=== PATIENT | female | born 1950 | race Caucasian/White ===

== ENCOUNTER → 2024-04-08 14:36 | Outpatient (REF) | payer MEDICARE, SELFPAY | LOC: RAD 14:36 | PROVIDERS: ATTENDING PHYSICIAN Internal Medicine Cardiovascular Disease; FAMILY PHYSICIAN Family Medicine | DX: R06.09 Other forms of dyspnea (principal) | CPT/HCPCS: 71046 ==

== ENCOUNTER → 2024-07-22 13:30 | Outpatient (REF) | payer MEDICARE, SELFPAY | LOC: WDC 13:30 | PROVIDERS: ATTENDING PHYSICIAN Obstetrics & Gynecology; FAMILY PHYSICIAN Family Medicine | DX: M85.80 Other specified disorders of bone density and structure, unspecified site (principal); Z12.31 Encounter for screening mammogram for malignant neoplasm of breast; M81.0 Age-related osteoporosis without current pathological fracture | CPT/HCPCS: 77063; 77067; 77080 ==

== ENCOUNTER 2025-01-03 23:55 | Emergency (ER) | payer MEDICARE, SELFPAY ==
[2025-01-03 23:57] VITALS: BP 100/62
[2025-01-04 00:09] VITALS: BMI 23.3
--- NOTE | 2025-01-04 00:15 | EDRN ---
Pt says she is here because around 2244 pt was sitting and noticed she went into afib 'I always feel it when it happens. It is uncomfortable.' Pt checked her apple watch and it confirmed she was in afib. No cp, sob, abd pain, n/v,
fever/chills/cough, dizziness, weakness. Pt feels palpitations and says the left side of her chest feels uncomfortable. Within past year pt has taken metoprolol for episodes of afib. Last time pt was hospitalized with afib was 2 years ago. Pt
took metoprolol 25mg around 2300 along with multaq 400mg that pt used to take.
[2025-01-04 00:22] VITALS: BP 110/72
--- NOTE | 2025-01-04 00:38 | ED.GENMED ---
History of Present Illness
General
Chief Complaint: Heart Rate Problem
Source: patient
Exam Limitations: none
Time Seen by Provider: 01/04/25 00:18
History of Present Illness
History of Present Illness:
74-year-old female with history of paroxysmal atrial fibrillation on Eliquis presents with the onset of atrial fibrillation around 11 PM this evening. She denies chest pain or shortness of breath. She took an additional metoprolol without any
success. She follows with a industrial maintenance instructor through [facility]. No leg swelling or calf pain. In the past she has had success with rate control medications.
Past History
Past History
ED Past Medical History: Arrthythmia, HTN and Hypercholesterolemia
ED Past Surgical History: None
Social History
Tobacco: Non-smoker
Alcohol: None
Drug: None
Personal:
Phy Exam
Physical Exam
Physical Exam:
General: Well-appearing female no acute respiratory distress
HEENT: Normocephalic atraumatic
Heart: Tachycardic and irregular
Lungs: Clear no wheeze
Extremities: No cyanosis or edema
Course
Orders/Labs/Results
Orders:
Orders
01/03/25 23:59
ECG [Electrocardiogram (*1)] Urgent
Reason for Study: Atrial Fibrillation
EKG- Treatment ONCE
01/04/25 00:30
0.9% Sodium Chloride 1000 ml [Nss] 1,000 ml IV BOLUS
Diltiazem 125 mg/125 ml Nss [Cardizem] 125 mg in 125 ml IV PER PROTOCOL
Initial dose in mg/hr, then titrate:: 5
Titrate to keep:: Heart rate 80-100 bpm
Titrate by mg/hr:: 5 mg/hr
Frequency of titrations (minutes):: 15
Maximum dose in mg/hr:: 15
Diltiazem HCl [Cardizem] 10 mg IV NOW STA
Vital Signs
Initial and Last Documented VS:
Initial Vital Signs
Temp Pulse Resp BP Pulse Ox
97.8 F 80 20 100/62 100
01/03/25 23:57 01/03/25 23:57 01/03/25 23:57 01/03/25 23:57 01/03/25 23:57
Last Documented Vital Signs
Temp Pulse Resp BP Pulse Ox
97.8 F 123 18 108/81 94
01/03/25 23:57 01/04/25 01:00 01/04/25 01:00 01/04/25 01:00 01/04/25 01:00
MDM/Problems Addressed
Differential Diagnosis Includes:
Patient felt onset of A-fib just prior to arrival. EKG confirms rapid atrial fibrillation. Heart rate varies from the 130s to 150s. Blood pressure is stable. Discussed treatment options. Will attempt rate control with diltiazem bolus and
infusion as well as fluid bolus.
*Critical Care Note
Total Time (30-74mins, 75-104mins- exclusive of procedures): Not Applicable
Update Note
Update Note:
Patient received a 10 mg bolus of diltiazem and fluids through the IV and was noted to convert back into sinus rhythm. Repeat EKG shows normal sinus rhythm with a rate of 80. Patient feeling much better. No indication for any further
intervention. Stable for discharge with follow-up with her industrial maintenance instructor
ED Attending Note
-
Portions of this chart may have been created with voice recognition software.� Occasional wrong word or��sound alike� substitutions may have occurred due to the inherent limitations of voice recognition software.
Discharge Plan
Departure
Patient Disposition: Home (Routine Discharge)
Date of Disposition: 01/04/25
Time of Disposition: 01:17
Patient with high blood pressure during this ER visit?: No
Discharge Problem:
Atrial fibrillation
Instructions: Atrial Fibrillation (DC)
Prescriptions:
No Action
aspirin 81 mg Tablet,Delayed Release (Dr/Ec)
81 mg PO DAILY
rosuvastatin 20 mg tablet
20 mg PO HS
Eliquis 5 mg tablet
5 mg PO BID
vitamin D3-vitamin K2 1,250-200 mcg Capsule
1 cap PO DAILY
Calcium + D
1 tab PO DAILY
Patient Comments:
pt does not know mg/mcg
Fish Oil
1 cap PO DAILY
magnesium
1 tab PO DAILY
Patient Comments:
pt does not know mg
metoprolol succinate 25 mg Tablet Extended Release 24 Hr
25 mg PO DAILYPRN PRN (Reason: afib)
Activity Restrictions/Additional Instructions:
Continue your current medications. Please follow-up with your industrial maintenance instructor. Return if worse
Interventions
Interventions:
*Risk Screen - Suicide Last Done: 01/03/25 23:57
*General Assessment Last Done: 01/04/25 00:10
*Neglect/Abuse Screening Last Done: 01/03/25 23:57
*ED COVID-19 Vaccine History Last Done: 01/04/25 00:10
ED- Cardiac Assessment Last Done: 01/04/25 00:23
ED- Pulmonary Assessment Last Done: 01/04/25 00:23
Discharge Date and Time
Print Language: VIET[place]ESE
[2025-01-04] MEDS: NSS 75 IV (00:47)
[2025-01-04] MEDS: CARDIZEM 10 MG IV (00:49)
[2025-01-04 00:55] VITALS: BP 105/75
[2025-01-04] MEDS: CARDIZEM 125 IV (00:56)
[2025-01-04 01:00] VITALS: BP 108/81
[2025-01-04 01:14] VITALS: BP 110/73
--- NOTE | 2025-01-04 01:36 | EDRN ---
Called into pt room because pt noted swelling around IV site - cardizem infusion and NS stopped at approximately 0110. Slight swelling noted dorsal R wrist, no pain. IV removed, pressure dressing applied. While this RN holding pressure to pt's IV
site, noted pt's HR 80 and pt in NSR. Repeat EKG obtained 0114 - NSR. Marco MORSE in to speak with pt. Pt reports L chest discomfort is gone and she can tell she is not in afib. Swelling around iv site most likely from NS - HR responded to
cardizem bolus, less than 1ml of cardizem infusion dispensed via pump. Pt instructed to elevate, apply ice if becomes painful/more swollen.
== END 2025-01-04 01:34 | disposition home or self-care (01) ==
LOC: EMR 23:55
PROVIDERS: EMERGENCY PHYSICIAN Emergency Medicine; FAMILY PHYSICIAN Family Medicine
DX: I48.0 Paroxysmal atrial fibrillation (principal); I10 Essential (primary) hypertension; E78.00 Pure hypercholesterolemia, unspecified; Z79.01 Long term (current) use of anticoagulants; Z88.8 Allergy status to other drugs, medicaments and biological substances
CPT/HCPCS: 99284; 96374; 93005

== ENCOUNTER 2025-01-22 13:46 | Emergency (ER) | payer MEDICARE, SELFPAY ==
[2025-01-22 14:08] VITALS: BP 136/78
[2025-01-22 14:29] LABS: % Basophils 0.7 % (0-2); % Eosinophils 2.8 % (0-6); % Immature Granulocytes 0.3 % (0-0.5); % Lymphocytes 23.1 % (20.5-51.1); % Monocytes 9.2 % (1.7-9.3); % Neutrophils 63.9 % (42.2-75.2); Absolute Basophils 0.1 10^3/uL (0-0.2); Absolute Eosinophils 0.2 10^3/uL (0-0.7); Absolute Lymphocytes 1.6 10^3/uL (1.2-3.4); Absolute Monocytes 0.6 10^3/uL (0.1-0.6); Absolute Neutrophils 4.3 10^3/uL (1.4-6.5); Hematocrit 45.2 % (37.0-47.0); Hemoglobin 15.2 g/dL (12.0-16.0); Mean Corp Hgb Conc. 33.6 g/dL (33.0-37.0); Mean Corpuscular Hgb 30.5 pg (27.0-31.0); Mean Corpuscular Volume 90.6 fL (81.0-99.0); Nucleated Red Blood Cells % 0 %; Platelet Count 204 10^3/uL (130-400); Red Blood Cell Count 4.99 10^6/uL (4.20-5.40); Red Cell Dist. Width 14.3 % (11.5-14.5); White Blood Cell Count 6.8 10^3/uL (4.8-10.8)
[2025-01-22 14:49] LABS: ALT (SGPT) 22 U/L (0-35); AST (SGOT) 30 U/L (14-36); Albumin 5.1 g/dl (3.5-5.0); Alkaline Phosphatase 81 U/L (38-126); Blood Urea Nitrogen 21 mg/dl (7-17); Calcium 10.2 mg/dl (8.4-10.2); Carbon Dioxide 25 mmol/L (22-30); Chloride 103 mmol/L (98-107); Glucose 126 mg/dl (70-99); Potassium 4.7 mmol/L (3.5-5.1); Sodium 142 mmol/L (135-145); Total Bilirubin 0.9 mg/dl (0.2-1.3); Total Protein 7.5 g/dl (6.3-8.2); eGFR > 60.00
[2025-01-22 14:57] LABS: Troponin I < 0.012 ng/ml
--- NOTE | 2025-01-22 16:51 | ED.GENMED ---
History of Present Illness
General
Chief Complaint: Heart Rate Problem
Time Seen by Provider: 01/22/25 16:50
History of Present Illness
History of Present Illness:
TIME OF INITIAL ENCOUNTER: 4:55 PM
HPI: Palpitations for past 5hrs. Took Metoprolol tartrate uncertain dose today - takes it prn. Has h/o paroxysmal AFib. Seen here last month and converted after she received IV Cardizem. She has similar symptoms as last month. She is on
Eliquis. The patient states that she was never electrically cardioverted in the past.
EXAM:
GENERAL: Well appearing in no distress
HEENT: Moist oral mucosa
CARDIOVASCULAR: No murmurs, tachycardic heart rate, irregular rhythm, No chest wall tenderness
PULMONARY: No respiratory distress, breath sounds are clear and equal
ABDOMEN: Soft with no peritoneal signs, no tenderness
NEUROLOGIC: Excellent strength all extremities, no coordination deficits
PSYCHIATRIC: Appropriate mental status, normal insight and judgement
EXTREMITIES: Nontender, no edema, moves all extremities equally
SKIN: No rash, no lesions
NUMBER AND COMPLEXITY OF PROBLEMS ADDRESSED AT THE ENCOUNTER
� Chronic conditions affecting care: Atrial fibrillation on Eliquis, CAD, thyroid cancer
� Acute Exacerbation and/or Progression of Chronic Illness: This is an acute but recurring problem
� Differential Diagnosis includes: A-fib with RVR, electrolyte abnormality, highly doubt ACS
AMOUNT AND/OR COMPLEXITY OF DATA TO BE REVIEWED AND ANALYZED
� I performed an independent evaluation of and my interpretation is:
EKG: Sinus 80, leftward axis deviation, no acute ST abnormality
CT:
X-rays:
Laboratory Studies: CBC normal, chemistries unremarkable, troponin less than 0.012
Other:
� Review of other/old records: I reviewed records, the patient converted after receiving a dose of Cardizem last time she was here
� Clinical information was obtained by an independent historian: I spoke to at bedside
� Prescriptions/Medications Considered but not given:
� Further testing considered but not performed:
RISK OF COMPLICATIONS AND/OR MORBIDITY OR MORTALITY OF PATIENT MANAGEMENT
� Social determinants of health affecting care: Lives at home
� Discussion with other providers:
� Escalation of care including admission/observation vs risk of discharge considered: The patient is found to be in rapid A-fib. She converted with Cardizem last month and will give another dose of Cardizem now.
ANY OTHER UPDATES:
6:45 PM the patient was given Cardizem IV earlier. On reassessment, she did convert back to sinus rhythm. She overall feels improved and back to baseline prior to discharge.
Past History
Past History
ED Past Medical History: Arrthythmia, HTN and Hypercholesterolemia
ED Past Surgical History: None
Social History
Tobacco: Non-smoker
Alcohol: None
Drug: None
Personal:
Phy Exam
Physical Exam
Physical Exam:
See HPI
Course
Orders/Labs/Results
Orders:
Orders
01/22/25 13:49
Electrocardiogram (*1) Urgent
Reason for Study: Tachycardia
EKG- Treatment ONCE
01/22/25 14:17
CBC/With Diff [Complete Blood Count/With Diff] Urgent
Comprehensive Metabolic Panel Urgent
Troponin I Urgent
01/22/25 17:27
Diltiazem 125 mg/125 ml Nss [Cardizem] 125 mg in 125 ml IV NOW
Currently infusing. Continue current dose and titrate:: Yes
Titrate to keep:: Heart rate 80-100 bpm
Titrate by mg/hr:: 5 mg/hr
Frequency of titrations (minutes):: 15
Maximum dose in mg/hr:: 15
Diltiazem HCl [Cardizem] 10 mg IV NOW STA
01/22/25 18:33
ECG [Electrocardiogram (*1)] Urgent
Reason for Study: Palpitations
EKG- Treatment ONCE
Abnormal Lab Results
01/22/25
14:17
BUN 21 H mg/dl
(7-17)
Glucose 126 H mg/dl
(70-99)
Albumin 5.1 H g/dl
(3.5-5.0)
01/22/25 14:17
01/22/25 14:17
Vital Signs
Initial and Last Documented VS:
Initial Vital Signs
Temp Pulse Resp BP Pulse Ox
36.9 C 114 16 136/78 98
01/22/25 14:08 01/22/25 14:08 01/22/25 14:08 01/22/25 14:08 01/22/25 14:08
Last Documented Vital Signs
Temp Pulse Resp BP Pulse Ox
36.9 C 132 25 103/72 93
01/22/25 14:08 01/22/25 18:00 01/22/25 18:00 01/22/25 18:00 01/22/25 18:00
*Critical Care Note
Total Time (30-74mins, 75-104mins- exclusive of procedures): Not Applicable
ED Attending Note
-
Portions of this chart may have been created with voice recognition software.� Occasional wrong word or��sound alike� substitutions may have occurred due to the inherent limitations of voice recognition software.
Discharge Plan
Departure
Patient Disposition: Home (Routine Discharge)
Date of Disposition: 01/22/25
Time of Disposition: 19:22
Patient with high blood pressure during this ER visit?: Yes
Discharge Problem:
Atrial fibrillation
Instructions: Atrial Fibrillation (DC), BLOOD PRESSURE
Prescriptions:
No Action
aspirin 81 mg Tablet,Delayed Release (Dr/Ec)
81 mg PO DAILY
rosuvastatin 20 mg tablet
20 mg PO HS
Eliquis 5 mg tablet
5 mg PO BID
vitamin D3-vitamin K2 1,250-200 mcg Capsule
1 cap PO DAILY
Calcium + D
1 tab PO DAILY
Patient Comments:
pt does not know mg/mcg
Fish Oil
1 cap PO DAILY
magnesium
1 tab PO DAILY
Patient Comments:
pt does not know mg
metoprolol succinate 25 mg Tablet Extended Release 24 Hr
25 mg PO DAILYPRN PRN (Reason: afib)
Referrals:
Luis Miguel Gupta MD [Non-Admitting Privileges] - Follow up in 2-3 days
Wyatt Oneal MD [Family Provider] -
Activity Restrictions/Additional Instructions:
You initially were in atrial fibrillation however while in the ED, you did convert to a sinus rhythm after Cardizem was given. I recommend that you follow-up with your cardiology. Return here if worse or other concerns.
Interventions
Interventions:
*Risk Screen - Suicide Last Done: 01/22/25 14:08
*Neglect/Abuse Screening Last Done: 01/22/25 14:08
ED- Cardiac Assessment Last Done: 01/22/25 17:30
ED- Pulmonary Assessment Last Done: 01/22/25 17:30
Discharge Date and Time
Print Language: CHINESE
[2025-01-22 17:39] VITALS: BP 113/85
[2025-01-22] MEDS: CARDIZEM 10 MG IV (17:39)
[2025-01-22] MEDS: CARDIZEM 125 IV (17:42)
[2025-01-22 18:00] VITALS: BP 103/72
== END 2025-01-22 19:41 | disposition home or self-care (01) ==
LOC: EMR 13:46
PROVIDERS: Student in an Organized Health Care Education/Training Program; EMERGENCY PHYSICIAN Emergency Medicine; FAMILY PHYSICIAN Family Medicine
DX: I48.0 Paroxysmal atrial fibrillation (principal); I10 Essential (primary) hypertension; Z79.01 Long term (current) use of anticoagulants
CPT/HCPCS: 99284; 96374; 80053; 84484; 85025; 93005

== ENCOUNTER 2025-02-19 15:47 | Emergency (ER) | payer MEDICARE, SELFPAY ==
[2025-02-19] VITALS (8 sets, daily range): BP systolic 102–124; BP diastolic 72–103; BMI 23.1
--- NOTE | 2025-02-19 16:04 | ED.GENMED ---
History of Present Illness
General
Chief Complaint: Heart Rate Problem
Time Seen by Provider: 02/19/25 15:57
History of Present Illness
History of Present Illness:
Patient is a 74-year-old female with past medical history of atrial fibrillation since 2008 currently on anticoagulation with Eliquis (reports medication compliance, has not missed any doses), history of thyroid cancer, coronary artery disease with
prior history of OR/stents, hyperlipidemia, and cataracts, here today for evaluation of sudden onset of palpitations that began with a patient was sitting down at approximately 1:30 PM earlier today consistent with her baseline paroxysmal atrial
fibrillation. She felt occasionally lightheaded but not dizzy to the point where she could not walk or stand. She denies other associated symptoms. She has no chest pain or difficulty breathing. No fevers or vomiting. No cough or other URI
symptoms. No lower extremity pain or swelling. She has been seen here now x 2 for similar symptoms and provided Cardizem and ultimately discharged with conversion back to normal sinus. She has never been admitted or cardioverted.
Past History
Past History
ED Past Medical History: Arrthythmia, HTN and Hypercholesterolemia
ED Past Surgical History: None
Social History
Tobacco: Non-smoker
Alcohol: None
Drug: None
Personal:
Review of Systems
Review of Systems
All Other Systems: ROS reviewed and negative except as documented in HPI and ROS
Phy Exam
Physical Exam
Physical Exam:
GENERAL: Alert , in no apparent distress
EYE: pupils equal and reactive
NECK: Supple, no significant adenopathy.
ENT: o/p clr, mmm.
CARDIAC: Tachycardic rate, irregular rhythm
LUNGS: Clear breath sounds bilaterally, no acute respiratory distress, no wheezes/rales/rhonchi
ABDOMEN: Soft, without focal tenderness, no r/g, no cvat
NEUROLOGICAL: Alert and oriented, no focal neuro deficits
SKIN: Warm and dry, skin intact.
MUSCULOSKELETAL: No edema, well perfused.
PSYCH: Normal and appropriate interaction.
Course
Orders/Labs/Results
Orders:
Orders
02/19/25 15:47
Electrocardiogram (*1) Urgent
Reason for Study: Atrial Fibrillation
EKG- Treatment ONCE
02/19/25 16:07
Basic Metabolic Panel Urgent
Complete Blood Count/With Diff Urgent
Magnesium Urgent
Phos [Phosphorus] Urgent
TSH Reflex To Free T4 Urgent
02/19/25 16:21
Diltiazem HCl [Cardizem] 10 mg IV NOW STA
02/19/25 17:10
Diltiazem 125 mg/125 ml Nss [Cardizem] 125 mg in 125 ml IV NOW
Initial dose in mg/hr, then titrate:: 5
Titrate to keep:: Heart rate 80-100 bpm
Titrate by mg/hr:: 5 mg/hr
Frequency of titrations (minutes):: 15
Maximum dose in mg/hr:: 15
02/19/25 18:05
Electrocardiogram (*1) Urgent
Reason for Study: Palpitations
EKG- Treatment ONCE
Abnormal Lab Results
02/19/25
16:07
Absolute Monos (auto) 0.7 H 10^3/uL
(0.1-0.6)
Monocytes % 11.5 H %
(1.7-9.3)
Chloride 108 H mmol/L
(98-107)
BUN 19 H mg/dl
(7-17)
02/19/25 16:07
02/19/25 16:07
Vital Signs
Initial and Last Documented VS:
Initial Vital Signs
Temp Pulse Resp BP Pulse Ox
98.3 F 130 16 124/77 97
02/19/25 15:48 02/19/25 15:48 02/19/25 15:48 02/19/25 15:48 02/19/25 15:48
Last Documented Vital Signs
Temp Pulse Resp BP Pulse Ox
98.3 F 64 19 104/77 97
02/19/25 15:48 02/19/25 18:34 02/19/25 18:34 02/19/25 18:34 02/19/25 18:34
MDM/Problems Addressed
Differential Diagnosis Includes:
Patient is a 74-year-old female with past medical history of atrial fibrillation since 2008 currently on anticoagulation with Eliquis (reports medication compliance, has not missed any doses), history of thyroid cancer, coronary artery disease with
prior history of OR/stents, hyperlipidemia, and cataracts, here today for evaluation of sudden onset of palpitations. Overall, patient appears very well. She is tachycardic to the 130s to 140s and EKG is consistent with atrial fibrillation with
rapid ventricular response. Her blood pressure is stable. Will begin with basic screening labs. She denies chest pain or difficulty breathing. She is on anticoagulation. We will provide Cardizem. Will closely monitor and reassess.
02/19/2025 1903: Patient received 1 dose of IV Cardizem bolus followed by a Cardizem drip. Upon reevaluation she converted to normal sinus rhythm with confirmation via EKG with normal heart rate. Patient monitored in the emergency department without
recurrence of atrial fibrillation. She is asymptomatic and appears well overall and suitable for discharge with outpatient follow-up. We discussed following up with electrophysiology for her scheduled ablation. Return precautions given. All
questions answered. Stable for discharge
*EKG
Interpreted by ED Provider?: Yes
EKG Intrepretation Date: 02/19/25
EKG Intrepretation Time: 15:55
Interpretation: abnormal
Comparison EKG: changes noted
Heart Rate: 166
Rate: tachycardiac
Rhythm: a-fib
[place]: normal axis
Interval: normal interval
*Critical Care Note
Total Time (30-74mins, 75-104mins- exclusive of procedures): Not Applicable
ED Attending Note
-
Portions of this chart may have been created with voice recognition software.� Occasional wrong word or��sound alike� substitutions may have occurred due to the inherent limitations of voice recognition software.
Discharge Plan
Departure
Patient Disposition: Home (Routine Discharge)
Date of Disposition: 02/19/25
Time of Disposition: 18:54
Patient with high blood pressure during this ER visit?: No
Condition: Good
Covid-19: Not Applicable
Discharge Problem:
Atrial fibrillation with rapid ventricular response
Instructions: Atrial Fibrillation (DC)
Prescriptions:
No Action
aspirin 81 mg Tablet,Delayed Release (Dr/Ec)
81 mg PO DAILY
rosuvastatin 20 mg tablet
20 mg PO HS
Eliquis 5 mg tablet
5 mg PO BID
vitamin D3-vitamin K2 1,250-200 mcg Capsule
1 cap PO DAILY
Calcium + D
1 tab PO DAILY
Patient Comments:
pt does not know mg/mcg
Fish Oil
1 cap PO DAILY
magnesium
1 tab PO DAILY
Patient Comments:
pt does not know mg
metoprolol succinate 25 mg Tablet Extended Release 24 Hr
25 mg PO DAILYPRN PRN (Reason: afib)
Homocysteine Tab
1 tab PO DAILY
zinc 15 mg Tablet
15 mg PO DAILY
Referrals:
Wyatt Oneal MD [Family Provider] - Follow up in 5-7 days
Raji Mendez MD [Active] - Follow up in 1 week
Activity Restrictions/Additional Instructions:
You were seen today after you were found to have atrial fibrillation with an elevated heart rate.
We provided you with medication with improvement in symptoms and resolution of your abnormal heart rhythm.
Continue taking your medications as directed. Follow-up with your geography department chair and back hoe machine operator for further testing and evaluation.
Return for new, worsening, or concerning symptoms.
Interventions
Interventions:
*Risk Screen - Suicide Last Done: 02/19/25 15:48
*General Assessment Last Done: 02/19/25 15:48
*Neglect/Abuse Screening Last Done: 02/19/25 15:48
*ED- Fall Risk Assessment Last Done: 02/19/25 15:48
*ED COVID-19 Vaccine History Last Done: 02/19/25 15:48
ED- Cardiac Assessment Last Done: 02/19/25 17:35
ED- Pulmonary Assessment Last Done: 02/19/25 16:49
Discharge Date and Time
Print Language: MALTESE
[2025-02-19 16:20] LABS: % Basophils 0.8 % (0-2); % Eosinophils 2.7 % (0-6); % Immature Granulocytes 0.3 % (0-0.5); % Lymphocytes 25.5 % (20.5-51.1); % Monocytes 11.5 % (1.7-9.3); % Neutrophils 59.2 % (42.2-75.2); Absolute Basophils 0.1 10^3/uL (0-0.2); Absolute Eosinophils 0.2 10^3/uL (0-0.7); Absolute Lymphocytes 1.5 10^3/uL (1.2-3.4); Absolute Monocytes 0.7 10^3/uL (0.1-0.6); Absolute Neutrophils 3.6 10^3/uL (1.4-6.5); Hematocrit 42.6 % (37.0-47.0); Hemoglobin 14.5 g/dL (12.0-16.0); Mean Corpuscular Hgb 30.2 pg (27.0-31.0); Mean Corpuscular Volume 88.8 fL (81.0-99.0); Mean Platelet Volume 9.9 fL (7.4-10.4); Nucleated Red Blood Cells % 0 %; Platelet Count 202 10^3/uL (130-400); Red Cell Dist. Width 13.7 % (11.5-14.5)
[2025-02-19 16:37] LABS: Blood Urea Nitrogen 19 mg/dl (7-17); Calcium 9.6 mg/dl (8.4-10.2); Carbon Dioxide 26 mmol/L (22-30); Chloride 108 mmol/L (98-107); Estimated Creatinine Clearance 78 ml/min; Glucose 98 mg/dl (70-99); Phosphorus 3.6 mg/dl (2.5-4.5); Potassium 4.3 mmol/L (3.5-5.1); Sodium 140 mmol/L (135-145); eGFR > 60.00
[2025-02-19] MEDS: CARDIZEM 10 MG IV (16:41)
[2025-02-19 17:07] LABS: TSH Reflex To Free T4 1.42 uIU/ml (0.47-4.68)
[2025-02-19] MEDS: CARDIZEM 125 IV (17:33)
--- NOTE | 2025-02-19 17:38 | EDRN ---
Pt notes she went into afib around 1315 this afternoon. Pt was in this ED December and January for same - converted with cardizem only. Pt took a dose of metoprolol around 1330 today. Pt feels palpitations, no sob/cp. Pt denies abd pain, n/v,
fever/chills/cough. Pt has an ablation scheduled in March.
== END 2025-02-19 19:15 | disposition home or self-care (01) ==
LOC: EMR 15:47
PROVIDERS: Physician Assistant; EMERGENCY PHYSICIAN Emergency Medicine; FAMILY PHYSICIAN Family Medicine
DX: I48.91 Unspecified atrial fibrillation (principal); Z79.01 Long term (current) use of anticoagulants
CPT/HCPCS: 99284; 96374; 80048; 83735; 84100; 84443; 85025; 93005

== ENCOUNTER 2025-03-19 14:20 | Emergency (ER) | payer MEDICARE, SELFPAY ==
[2025-03-19 14:23] VITALS: BP 128/82
--- NOTE | 2025-03-19 16:30 | ED.GENMED ---
History of Present Illness
General
Chief Complaint: Head Injury
Source: patient and spouse
Exam Limitations: none
Time Seen by Provider: 03/19/25 15:56
Nursing documentation reviewed up to this point in time: agreed with
History of Present Illness
History of Present Illness:
74-year-old female presents emergency department after a trip and fall, hitting the back of her head. No loss of consciousness. She takes Eliquis for atrial fibrillation. Bleeding currently controlled. She denies any other injuries. She denies
neck pain.
Past History
Past History
ED Past Medical History: Arrthythmia, HTN and Hypercholesterolemia
ED Past Surgical History: None
Social History
Tobacco: Non-smoker
Alcohol: None
Drug: None
Personal:
Review of Systems
Review of Systems
Allergies reviewed?: Yes
All Other Systems: Not applicable
Constitutional: Reports no symptoms
EENT: Reports no symptoms
Respiratory: Reports no symptoms
Cardiac: Reports no symptoms; Denies chest pain or syncope
ABD/GI: Reports no symptoms
: Reports no symptoms
Musculoskeletal: Reports no symptoms
Skin: Reports no symptoms
Neurological: Reports no symptoms
Endocrine: Reports no symptoms
Hematologic/Lymphatic: Reports no symptoms
Psychiatric: Reports no symptoms
Phy Exam
Physical Exam
Physical Exam:
Physical Exam
General: no apparent distress, not acutely ill
Neck: supple. no meningeal signs. normal posterior pharynx, no cervical spine tenderness
Heart: s1/s2 regular rate and rhythm, no murmur. equal radial
pulses.
HEENT: Pupils equal round reactive to light, EOMI
Lungs: no acute respiratory distress. clear bilaterally
Abdomen: normal bowel sounds. not tender. no CVAT
Neuro: alert and oriented. no focal neurological deficits cranial nerves II through XII intact
Skin: no rash, contusion occiput
Psychiatric: well kept. interactive and cooperative
Extremities: no edema. no calf tenderness. negative homans. good distal pulses
Course
Orders/Labs/Results
Orders:
Orders
03/19/25 14:[address] [CT Head W/o Iv Contrast] Urgent
Comment:
Reason For Exam: head trauma on eliquis
Vital Signs
Initial and Last Documented VS:
Initial Vital Signs
Temp Pulse Resp BP Pulse Ox
98.1 F 75 16 128/82 100
03/19/25 14:23 03/19/25 14:23 03/19/25 14:23 03/19/25 14:23 03/19/25 14:23
Last Documented Vital Signs
Temp Pulse Resp BP Pulse Ox
98.1 F 75 16 128/82 100
03/19/25 14:23 03/19/25 14:23 03/19/25 14:23 03/19/25 14:23 03/19/25 14:23
MDM/Problems Addressed
Differential Diagnosis Includes:
Intracranial hemorrhage
MDM/Problems Addressed:
74-year-old female with head contusion, no active bleeding, no intracranial hemorrhage. No other injuries. Stable for discharge.
Chronic conditions affecting care: Arrhythmia
Acute Exacerbation and/or Progression of Chronic Illness: Other (Anticoagulation)
*Radiology
Radiology exam reviewed: radiology read reviewed (CT head no acute findings)
*Pulse Oximetry
Patient hypoxic: no
*Critical Care Note
Total Time (30-74mins, 75-104mins- exclusive of procedures): Not Applicable
Patient Management
Social determinants of health affecting care: Living situation and Strong social support
Escalation/DeEscalation of care consider admission/obs:
Admission not indicated
ED Attending Note
-
Portions of this chart may have been created with voice recognition software.� Occasional wrong word or��sound alike� substitutions may have occurred due to the inherent limitations of voice recognition software.
Discharge Plan
Departure
Patient Disposition: Home (Routine Discharge)
Date of Disposition: 03/19/25
Time of Disposition: 16:35
Patient with high blood pressure during this ER visit?: Yes
Discharge Problem:
Contusion of head
Instructions: Head Injury in Adults (DC), Contusion (DC), BLOOD PRESSURE
Prescriptions:
No Action
aspirin 81 mg Tablet,Delayed Release (Dr/Ec)
81 mg PO DAILY
rosuvastatin 20 mg tablet
20 mg PO HS
Eliquis 5 mg tablet
5 mg PO BID
vitamin D3-vitamin K2 1,250-200 mcg Capsule
1 cap PO DAILY
Calcium + D
1 tab PO DAILY
Patient Comments:
pt does not know mg/mcg
Fish Oil
1 cap PO DAILY
magnesium
1 tab PO DAILY
Patient Comments:
pt does not know mg
metoprolol succinate 25 mg Tablet Extended Release 24 Hr
25 mg PO DAILYPRN PRN (Reason: afib)
Homocysteine Tab
1 tab PO DAILY
zinc 15 mg Tablet
15 mg PO DAILY
Referrals:
Wyatt Oneal MD [Family Provider] - Call in 1-3 days for appt
Interventions
Interventions:
*Risk Screen - Suicide Last Done: 03/19/25 14:23
*General Assessment Last Done: 03/19/25 15:39
*Neglect/Abuse Screening Last Done: 03/19/25 14:23
ED- Neurological Assessment Last Done: 03/19/25 15:39
ED-Skin Assessment Last Done: 03/19/25 15:39
Discharge Date and Time
Print Language: CAMEROONIAN
[2025-03-19 16:37] VITALS: BP 128/74
== END 2025-03-19 16:58 | disposition home or self-care (01) ==
LOC: EMR 14:20
PROVIDERS: EMERGENCY PHYSICIAN Emergency Medicine; FAMILY PHYSICIAN Family Medicine
DX: S00.93XA Contusion of unspecified part of head, initial encounter (principal); W01.0XXA Fall on same level from slipping, tripping and stumbling without subsequent striking against object, initial encounter; E78.00 Pure hypercholesterolemia, unspecified; I10 Essential (primary) hypertension; I48.91 Unspecified atrial fibrillation; Z79.01 Long term (current) use of anticoagulants
CPT/HCPCS: 99284; 70450

== ENCOUNTER → 2025-08-05 13:32 | Outpatient (REF) | payer MEDICARE, SELFPAY | LOC: WDC 13:32 | PROVIDERS: ATTENDING PHYSICIAN Obstetrics & Gynecology | DX: Z12.31 Encounter for screening mammogram for malignant neoplasm of breast (principal) | CPT/HCPCS: 77063; 77067 ==